=== PATIENT | male | born 1985 | race Caucasian/White ===

== ENCOUNTER 2016-12-26 14:24 | Emergency (ER) | payer SELFPAY ==
[2016-12-26] MEDS ORDERED: Lidocaine 1% 20 ML MDV INJECT ONE (14:41)
[2016-12-26] MEDS ORDERED: Diphtheria,Pertussis(Acell),Tetanus Vaccine 0.5 ML Syringe IM ONE (14:41)
--- NOTE | 2016-12-26 14:47 | EDM.PDOC ---
ED HPI GENERAL MEDICAL PROBLEM - General Chief Complaint: Laceration Stated Complaint: PT HURT LT LEG Time Seen by Provider: 12/26/16 14:46 Source of Information: Reports: Patient, Family History Limitations: Reports: No Limitations - History of Present Illness INITIAL COMMENTS - FREE TEXT/NARRATIVE: HISTORY AND PHYSICAL: []31-year-old male presenting with a laceration to his left leg History of Present Illness: [] He hit his leg on a ramp at the hockey rink Does not remember his last tetanus injection Review of Systems: As per history of present illness and below otherwise all systems reviewed and negative. Past medical history: As per history of present illness and as reviewed below otherwise noncontributory. Surgical history: As per history of present illness and as reviewed below otherwise noncontributory. Social history: No reported history of drug or alcohol abuse. Family history: As per history of present illness and as reviewed below otherwise noncontributory. Physical exam: Alert and oriented, answering questions appropriately, operative with examination HEENT: Atraumatic, normocehpalic, pupils reactive, negative for conjunctival pallor or scleral icterus, mucous membranes moist, throat clear, neck supple, nontender, trachea midline. Lungs: Clear to auscultation, breath sounds equal bilaterally, chest non tender. Heart: S1S2, regular, negative for clicks, rubs, or JVD. Abdomen: Soft, nondistended, nontender. Negative for masses or hepatossplenmegaly. Negative for costovertebral tenderness. Pelvis: Stable nontender. Genitourinary: Deferred. Rectal: Deferred Extremities: Atraumatic, negative for cords or calf pain. Neurovascular unremarkable. Neuro: Awake, alert, oriented. Cranial nerves II through XII unremarkable. Cerebellum unremarkable. Motor and sensory unremarkable throughout. Exam nonfocal. Diagnostics: [] Therapeutics: [Sutures placed] Impression: [Laceration with repair] Plan: []Home Sutures out in 10 days Definitive disposition and diagnosis as appropriate pending reevaluation and review of above. Onset: Today, Sudden left lateral thigh Pain Score (Numeric/FACES): 1 - Related Data Allergies Allergy/AdvReac Type Severity Reaction Status Date / Time No Known Allergies Allergy Verified 12/26/16 14:40 Home Meds: Home Meds . [No Known Home Meds] 12/26/16 [History] ED ROS GENERAL - Review of Systems Review Of Systems: ROS reveals no pertinent complaints other than HPI. ED EXAM, SKIN/RASH Exam: See Below (See dictation) Course - Vital Signs Last Recorded V/S: Last Vital Signs Temp 36.7 C 12/26/16 14:41 Pulse 104 H 12/26/16 14:41 Resp 16 12/26/16 14:41 BP 165/74 H 12/26/16 14:41 Pulse Ox 98 12/26/16 14:41 - Orders/Labs/Meds Orders: Active Orders 24 hr Category Date Time Status Vaccines to be Administered [RC] PER UNIT ROUTINE Care 12/26/16 14:42 Active Meds: Medications Discontinued Medications Generic Name Dose Route Start Last Admin Trade Name Gerson PRN Reason Stop Dose Admin Bacitracin 1 dose 12/26/16 15:35 Bacitracin Oint 1 Gm TOP 12/26/16 15:36 ONETIME ONE Diphtheria/Tetanus/Acell Pertussis 0.5 ml 12/26/16 14:41 Adacel IM 12/26/16 14:42 .ONCE ONE Lidocaine HCl 20 ml 12/26/16 14:41 Xylocaine 1% INJECT 12/26/16 14:42 ONETIME ONE Departure - Departure Time of Disposition: 15:30 Disposition: Home, Self-Care 01 Condition: Good Clinical Impression: Laceration - Discharge Information Instructions: Laceration Care, Adult, [id number] Referrals: PCP,None [Primary Care Provider] - Forms: ED Department Discharge Additional Instructions: The following information is given to patients seen in the emergency department who are being discharged to home. This information is to outline your options for follow-up care. We provide all patients seen in our emergency department with a follow-up referral. The need for follow-up, as well as the timing and circumstances, are variable depending upon the specifics of your emergency department visit. If you don't have a primary care physician on staff, we will provide you with a referral. We always advise you to contact your personal physician following an emergency department visit to inform them of the circumstance of the visit and for follow-up with them and/or the need for any referrals to a consulting specialist. The emergency department will also refer you to a specialist when appropriate. This referral assures that you have the opportunity for followup care with a specialist. All of these measure are taken in an effort to provide you with optimal care, which includes your followup. Under all circumstances we always encourage you to contact your private physician who remains a resource for coordinating your care. When calling for followup care, please make the office aware that this follow-up is from your recent emergency room visit. If for any reason you are refused follow-up, please contact the [facility] emergency department at and asked to speak to the emergency department charge nurse. Sutures to remove then 10 days Signs of infections redness heat swelling pustular material return immediately for reevaluation - My Orders Last 24 Hours: My Active Orders 12/26/16 14:42 Vaccines to be Administered [RC] PER UNIT ROUTINE - Assessment/Plan Last 24 Hours: My Active Orders 12/26/16 14:42 Vaccines to be Administered [RC] PER UNIT ROUTINE
[2016-12-26] MEDS ORDERED: Bacitracin Oint 1 GM U/D Packet TOP ONE (15:35)
[2016-12-26 16:52] VITALS: BP 156/75
== END 2016-12-26 15:50 | disposition home or self-care (01) ==
LOC: MW.ED 14:24
DX: S71.112A Laceration without foreign body, left thigh, initial encounter (principal); Z23 Encounter for immunization; W21.89XA Striking against or struck by other sports equipment, initial encounter
CPT/HCPCS: 12002; 90471; 90715; 99282; 99282-25